=== PATIENT | female | born 1935 | race Caucasian/White ===

== ENCOUNTER 2016-11-16 12:24 | Emergency (ER) | payer MEDICARE ==
[2016-11-16 12:29] VITALS: BP 114/67; PULSE 86; RESP 18; TEMP 98; O2SAT 97
--- NOTE | 2016-11-16 12:37 | C.PDOC ---
History Of Present Illness 81 y/o female with history of dementia is brought into the ED by police for evaluation after she was found confused, wandering around outside. Patient denies any pain, injury, or any other complaints. Time Seen by Provider: 11/16/16 12:32 Chief Complaint (Nursing): Medical Clearance History Per: Patient, Other ([employer]) History/Exam Limitations: other (pt has dementia) Onset/Duration Of Symptoms: Persistent, Unknown Current Symptoms Are (Timing): Still Present Recent travel outside of the [place]: No Past Medical History Reviewed: Historical Data, Nursing Documentation, Vital Signs Vital Signs: Last Vital Signs Temp 98 F 11/16/16 12:26 Pulse 86 11/16/16 12:26 Resp 18 11/16/16 12:26 BP 114/67 11/16/16 12:26 Pulse Ox 97 11/16/16 13:11 - Medical History PMH: Dementia, Hypothyroidism Surgical History: No Surg Hx Family History: States: Unknown Family Hx - Social History Hx Tobacco Use: No Hx Alcohol Use: No Hx Substance Use: No - Immunization History Hx Tetanus Toxoid Vaccination: No Hx Influenza Vaccination: No Hx Pneumococcal Vaccination: No Review Of Systems Review Of Systems: ROS cannot be obtained secondary to pt's inabilty to answer questions. (pt has dementia - denies complaints) Neurological: Positive for: Confusion Physical Exam - Physical Exam Appears: Non-toxic, No Acute Distress Skin: Normal Color, Warm, Dry, No Ecchymosis Head: Atraumatic, Normacephalic, No Abrasion, No Laceration Eye(s): bilateral: Normal Inspection, PERRL, EOMI Nose: Normal, No Epistaxis Oral Mucosa: Moist Neck: Normal ROM, No Midline Cervical Tenderness, Supple Chest: Symmetrical, No Tenderness Cardiovascular: Rhythm Regular Respiratory: Normal Breath Sounds, No Rales, No Rhonchi, No Wheezing Gastrointestinal/Abdominal: Normal Exam, Soft, No Tenderness Back: Normal Inspection, No CVA Tenderness, No Vertebral Tenderness Extremity: Normal ROM, No Tenderness, No Swelling Extremity: Bilateral: Atraumatic, Normal Color And Temperature Neurological/Psych: No Oriented x3, Normal Speech, Normal Sensation, Other (pt has dementia) Disoriented To: Time ED Course And Treatment O2 Sat by Pulse Oximetry: 97 (ra) Pulse Ox Interpretation: Normal Medical Decision Making Medical Decision Making: Impression: pt with dementia found wandering around outside, confused. RN discussed case with patient's son who consents to treatment and discharge home. Plan: * Physical examination There are no signs of trauma or injury. Patient denies any complaints. Medically cleared for discharge. Advised to follow up with PMD in 1-2 days for further evaluation and return to the ED at any time for new or concerning symptoms. Disposition Counseled Patient/Family Regarding: Diagnosis - Disposition Referrals: Norma Richardson MD [Medical Doctor] - Disposition: HOME/ ROUTINE Disposition Time: 12:36 Condition: STABLE Instructions: Normal Exam (ED) - POA Present On Arrival: None - Clinical Impression Clinical Impression: Medical assessment, Dementia - PA / CASH SPECIALIST / Resident Statement MD/DO has reviewed & agrees with the documentation as recorded. - Scribe Statement The provider has reviewed the documentation as recorded by the Scribe (Treva Cole) All medical record entries made by the Scribe were at my direction and personally dictated by me. I have reviewed the chart and agree that the record accurately reflects my personal performance of the history, physical exam, medical decision making, and the department course for this patient. I have also personally directed, reviewed, and agree with the discharge instructions and disposition.
== END 2016-11-16 12:45 | disposition home or self-care (01) ==
LOC: C.ER 12:24
DX: F03.90 Unspecified dementia, unspecified severity, without behavioral disturbance, psychotic disturbance, mood disturbance, and anxiety (principal)